=== PATIENT | male | born 1955 | race Caucasian/White ===

== ENCOUNTER 2019-08-26 16:23 | Emergency (ER) | payer SELFPAY ==
[~2019-08-26] VITALS: Ht 167.2 cm; Wt 58.9 kg
--- NOTE | 2019-08-26 16:50 | ED General ---
General Chief Complaint: Cough/Cold/Flu Symptoms Stated Complaint: EXPOSURE TO COVID,CP,FEVER Source of Information: Patient Exam Limitations: No Limitations History of Present Illness Date Seen by Provider: Aug 26, 2019 Time Seen by Provider: 16:44 Physical Exam Vital Signs Capillary Refill : Height, Weight, BMI Height: '" Weight: lbs. oz. kg; BMI Method: Progress/Results/Core Measures Suspected Sepsis SIRS Temperature: Pulse: Respiratory Rate: Blood Pressure / Mean: Results/Orders My Orders Orders - ALLEGRA DANIEL Ekg Tracing (08/26/19 16:29) Coronavirus Sars-Cov-2 So 2019 (08/26/19 16:37) Vital Signs/I&O Capillary Refill : Departure Impression Primary Impression: Exposure to SARS-associated coronavirus Disposition: 01 HOME, SELF-CARE Condition: Stable/Unchanged Departure-Patient Inst. Decision time for Depature: 16:45 Patient Instructions: Coronavirus Disease 2019 (COVID-19) Overview Add. Discharge Instructions: Isolate until we get your results. Follow-up with your primary care provider as needed. Return back to the emergency room for worsening symptoms or concerns as needed. All discharge instructions reviewed with patient and/or family. Voiced understanding. ALLEGRA DANIEL Aug 26, 2019 16:49
[2019-08-26 17:16] VITALS: BP 125/65
--- OUTSIDE RECORDS SUMMARY | 2019-08-26 21:01 | XMS REPORT | CCD ---
Author ANGELLA Elizondo Organization Unknown Address [address] [facility] [address] [place], [place] [id number] Care Team Providers Care Research Associate Molecular Biology Name Role Phone NIXON PHYS, NEGRITA ER Attphys NIXON PHYS, NEGRITA ER Prisurg Vital Signs Unknown. Allergies Unknown. Procedures Unknown. History of Immunizations Unknown. Problems Unknown. Results Unknown. Medications Unknown. Medications Administered Unknown. Encounters Unknown. Social History Unknown. Patient Decision Aids Unknown. Instructions You were admitted to [facility] on 03/18/2013. You were discharged from [facility] on 03/18/2013. Should you have any questions prior to discharge, please contact a member of your healthcare team. If you have left the hospital and have any questions, please contact your primary care physician. Chief Complaint and Reason For Visit Chief Complaint Date of Onset HAND INJURY Function Status Unknown. Plan of Care Unknown. Referral/Transition of Care Unknown.
--- OUTSIDE RECORDS SUMMARY | 2019-08-26 21:01 | XMS REPORT | CCD ---
Author ANGELLA Elizondo Organization Unknown Address [address] [facility] [address] [place], [place] [id number] Care Team Providers Care Government Instructor Name Role Phone JERO DESAI, LIVIER Ambrosio Attphyelsy JERO DESAI, LIVIER Martin Vital Signs Unknown. Allergies Unknown. Procedures Unknown. History of Immunizations Unknown. Problems Unknown. Results Unknown. Medications Unknown. Medications Administered Unknown. Encounters Unknown. Social History Smoking Status Code Start Date End Date Current every day smoker [id number] Patient Decision Aids Unknown. Instructions You were admitted to [facility] on 03/26/2013. You were discharged from [facility] on 03/26/2013. Should you have any questions prior to discharge, please contact a member of your healthcare team. If you have left the hospital and have any questions, please contact your primary care physician. Chief Complaint and Reason For Visit Chief Complaint Date of Onset SUTURE REMOVAL Function Status Unknown. Plan of Care Unknown. Referral/Transition of Care Unknown.
--- OUTSIDE RECORDS SUMMARY | 2019-08-26 21:01 | XMS REPORT | CCD ---
Author ANGELLA Elizondo Organization Unknown Address [address] [facility] [address] [place], [place] [id number] Care Team Providers Care Marketing Support Coordinator Name Role Phone JERO DESAI, LIVIER Ambrosio Attphyelsy JERO DESAI, LIVIER Martin Vital Signs Unknown. Allergies Unknown. Procedures Unknown. History of Immunizations Unknown. Problems Unknown. Results Unknown. Medications Unknown. Medications Administered Unknown. Encounters Unknown. Social History Smoking Status Code Start Date End Date Current every day smoker [id number] Patient Decision Aids Unknown. Instructions You were admitted to [facility] on 03/26/2013. You were discharged from [facility] on 03/26/2013. Should you have any [...]
== END 2019-08-26 17:16 | disposition home or self-care (01) ==
LOC: ER 16:25
DX: R50.9 Fever, unspecified (principal); R07.9 Chest pain, unspecified; Z20.828 Contact with and (suspected) exposure to other viral communicable diseases
CPT/HCPCS: 99282; U0002; 87635